=== PATIENT | female | born 1995 | race Caucasian/White ===

== ENCOUNTER 2018-03-23 14:57 | Inpatient (IN) | payer MEDICAID ==
[~2018-03-23] VITALS: Ht 154.9 cm; Wt 38.5 kg
[~2018-03-23 14:57] MED LIST: RISP2 PO; SERT50TA12 PO
[2018-03-23 15:32] VITALS: BP 111/72
[2018-03-23] MEDS ORDERED: ZOLPIDEM TARTRATE 10 MG TABLET PO PRN (16:00)
[2018-03-23 16:44] VITALS: BP 116/60
[2018-03-23] MEDS ORDERED: PETROLATUM,WHITE 71 GM JELLY TP PRN (16:45)
[2018-03-23] MEDS ORDERED: ACETAMINOPHEN 325 MG TABLET PO PRN (16:45)
[2018-03-23] MEDS ORDERED: MAGNESIUM HYDROXIDE SUSPENSION 30 ML UDCUP PO PRN (16:45)
[2018-03-23] MEDS ORDERED: DOCUSATE SODIUM 100 MG CAPSULE PO PRN (16:45)
[2018-03-23] MEDS ORDERED: ONDANSETRON HCL 4 MG TABLET PO PRN (16:45)
[2018-03-23] MEDS ORDERED: NICOTINE 14 MG/24 HOUR PATCH TD PRN (16:45)
[2018-03-23] MEDS ORDERED: MAG HYDROX/AL HYDROX/SIMETH ES 30 ML SUSPENSION UDCUP PO PRN (16:45)
[2018-03-23] MEDS ORDERED: IBUPROFEN 400 MG TABLET PO PRN (16:45)
[2018-03-23] MEDS ORDERED: GuaiFENesin/D-METHORPHAN [SUGAR-FREE] 200-20MG/10 ML SYRUP UDCUP PO PRN (16:45)
[2018-03-23] MEDS ORDERED: ALBUTEROL SULFATE HFA 90 MCG/PUFF 8 GM INHALER IH PRN (16:45)
[2018-03-23] MEDS ORDERED: CloNIDine HCL 0.1 MG TABLET PO PRN (16:45)
[2018-03-23] MEDS ORDERED: LOPERAMIDE HCL 2 MG CAPSULE PO PRN (16:45)
[2018-03-23] MEDS: HALOPERIDOL 5 MG TABLET PO PRN (20:54)
[2018-03-24 06:28] VITALS: BP 105/64
[2018-03-24 07:23] LABS: BASOPHILS % (AUTO) 0.6 % (0.0-2.0); EOSINOPHILS % (AUTO) 2.6 % (1.0-6.0); HEMATOCRIT 35.4 % (36-46); HEMOGLOBIN 12.8 g/dL (12.0-16.0); LYMPHOCYTES # (AUTO) 2.6 K/uL (1.0-4.8); LYMPHOCYTES % (AUTO) 59.1 % (22.0-44.0); MEAN CORPUSCULAR HEMOGLOBIN 33.8 pg (26.0-34.0); MEAN CORPUSCULAR HGB CONC 36.1 G/dL (31.0-37.0); MEAN CORPUSCULAR VOLUME 94 fL (80-100); MONOCYTES # (AUTO) 0.4 K/uL (0.1-1.0); MONOCYTES % (AUTO) 8.9 % (2.0-9.0); NEUTROPHILS # (AUTO) 1.3 K/uL (1.8-7.7); NEUTROPHILS % (AUTO) 28.8 % (40.0-70.0); PLATELET COUNT (AUTO) 185 K/uL (150-450); RED BLOOD CELL COUNT(AUTO) 3.78 MIL/uL (4.00-5.20); RED CELL DISTRIBUTION WIDTH 12.3 % (11.5-14.5)
[2018-03-24 07:49] LABS: HEMOGLOBIN A1C 5.2 % (4.5-6.2)
[2018-03-24 07:50] LABS: ANION GAP 5 mmol/L (8-16); CARBON DIOXIDE 31 mmol/L (22-29); CHLORIDE 103 mmol/L (98-107); SODIUM SERUM 139 mmol/L (136-145)
[2018-03-24 07:51] LABS: ALANINE AMINOTRANSFERASE 30 U/L (12-78); ALBUMIN 3.8 g/dL (3.4-5.0); ALKALINE PHOSPHATASE 44 U/L (46-116); ASPARTATE AMINOTRANSFERASE 17 U/L (15-37); BILIRUBIN,TOTAL 0.6 mg/dL (0.1-1.0); CALCIUM, TOTAL 8.8 mg/dL (8.8-10.5); CHOL/HDL RATIO 2.5 (3.9-5.7); CHOLESTEROL 182 mg/dL (131-200); CREATININE 0.71 mg/dL (0.60-1.30); FREE T4 (FREE THYROXINE) 1.09 ng/dL (0.76-1.46); GLOMERULAR FILTR. RATE CALC > 60 mL/min (>60); GLUCOSE,RANDOM 81 mg/dL (70-110); HCG,QUANTITATIVE < 1 mIU/mL (0-6); HDL CHOLESTEROL 74 mg/dL (40-60); LDL CHOL (CALC.) 97 mg/dL (0-130); THYROID STIMULATING HORMONE 2.73 uIU/mL (0.36-3.74); TOTAL PROTEIN, SERUM 6.5 g/dL (6.4-8.2); TRIGLYCERIDES 53 mg/dL (15-150); UREA NITROGEN, BLOOD 9 mg/dL (7-18)
[2018-03-24 08:13] VITALS: BP 100/61
[2018-03-24] MEDS: SERTRALINE HCL 50 MG TABLET PO SCH (12:38)
[2018-03-24 16:04] VITALS: BP 103/64
[2018-03-24] MEDS: RisperiDONE 2 MG TABLET PO SCH (20:27)
[2018-03-25 08:03] VITALS: BP 93/60
[2018-03-25] MEDS: SERTRALINE HCL 50 MG TABLET PO SCH (08:30)
[2018-03-25] MEDS: NICOTINE 21 MG/24 HOUR PATCH TD SCH (10:38)
[2018-03-25 16:05] VITALS: BP_SYST 107; BP_SYST 118; BP_DIAS 68; BP_DIAS 76
[2018-03-25] MEDS: LORazepam 2 MG TABLET PO PRN (17:14)
[2018-03-25] MEDS: RisperiDONE 2 MG TABLET PO SCH (20:52)
[2018-03-26 06:11] VITALS: BP 108/65
[2018-03-26 08:14] VITALS: BP 108/65
[2018-03-26] MEDS: NICOTINE 21 MG/24 HOUR PATCH TD SCH (08:17)
[2018-03-26] MEDS: SERTRALINE HCL 50 MG TABLET PO SCH (08:17)
[2018-03-26] MEDS: HALOPERIDOL 5 MG TABLET PO PRN (08:17)
[2018-03-26] MEDS: LORazepam 2 MG TABLET PO PRN (08:17)
[2018-03-26 16:09] VITALS: BP 102/64
[2018-03-26] MEDS: RisperiDONE 2 MG TABLET PO SCH (21:02)
[2018-03-27 04:11] VITALS: BP 102/70
[2018-03-27 08:16] VITALS: BP 102/65
[2018-03-27] MEDS: SERTRALINE HCL 50 MG TABLET PO SCH (08:16)
[2018-03-27] MEDS: NICOTINE 21 MG/24 HOUR PATCH TD SCH (08:17)
[2018-03-27 14:43] VITALS: BP 107/68
[2018-03-27 16:23] VITALS: BP 100/64
[2018-03-27] MEDS: RisperiDONE 2 MG TABLET PO SCH (20:36)
[2018-03-28 01:49] VITALS: BP 108/70
[2018-03-28 08:22] VITALS: BP 100/63
[2018-03-28] MEDS: SERTRALINE HCL 50 MG TABLET PO SCH (08:53)
[2018-03-28] MEDS: NICOTINE 21 MG/24 HOUR PATCH TD SCH (08:54)
[2018-03-28] MEDS ORDERED: RisperiDONE 1 MG TABLET PO SCH (09:00)
[2018-03-28] MEDS ORDERED: RISP1TAB89 PO (09:49)
[2018-03-28] MEDS ORDERED: NICO-802 TD (09:58)
== END 2018-03-28 13:25 | disposition home or self-care (01) | DRG 750 ==
LOC: B3A 16:04 → B2S 03-27 14:03
PROVIDERS: ATTEND Psychiatry & Neurology Psychiatry
DX: F25.1 Schizoaffective disorder, depressive type (principal); F12.10 Cannabis abuse, uncomplicated; F15.10 Other stimulant abuse, uncomplicated; F17.200 Nicotine dependence, unspecified, uncomplicated; F41.9 Anxiety disorder, unspecified; G47.00 Insomnia, unspecified; Z91.5 Personal history of self-harm; Z71.51 Drug abuse counseling and surveillance of drug abuser; Z79.899 Other long term (current) drug therapy; Z56.0 Unemployment, unspecified
CPT/HCPCS: 83036; 84439; 84443; 87081; 90686

== ENCOUNTER 2018-12-18 15:30 | Inpatient (IN) | payer MEDICAID ==
[~2018-12-18] VITALS: Ht 154.9 cm; Wt 45.4 kg
[~2018-12-18 15:30] MED LIST changes: +RISP1TAB89 PO
[2018-12-18 15:33] VITALS: BP 107/66
[2018-12-18] MEDS ORDERED: ZOLPIDEM TARTRATE 10 MG TABLET PO PRN (15:45)
[2018-12-18] MEDS ORDERED: LORazepam 2 MG TABLET PO PRN (15:45)
[2018-12-18] MEDS ORDERED: HALOPERIDOL 5 MG TABLET PO PRN (15:45)
[2018-12-18 19:15] VITALS: BP 116/73
[2018-12-18] MEDS ORDERED: MAGNESIUM HYDROXIDE SUSPENSION 30 ML UDCUP PO PRN (21:00)
[2018-12-18] MEDS ORDERED: LOPERAMIDE HCL 2 MG CAPSULE PO PRN (21:00)
[2018-12-18] MEDS ORDERED: DOCUSATE SODIUM 100 MG CAPSULE PO PRN (21:00)
[2018-12-18] MEDS ORDERED: GuaiFENesin/D-METHORPHAN [SUGAR-FREE] 200-20MG/10 ML SYRUP UDCUP PO PRN (21:00)
[2018-12-18] MEDS ORDERED: NICOTINE 14 MG/24 HOUR PATCH TD PRN (21:00)
[2018-12-18] MEDS ORDERED: CloNIDine HCL 0.1 MG TABLET PO PRN (21:00)
[2018-12-18] MEDS ORDERED: ONDANSETRON HCL 4 MG TABLET PO PRN (21:00)
[2018-12-18] MEDS ORDERED: ALBUTEROL SULFATE HFA 90 MCG/PUFF 8 GM INHALER IH PRN (21:00)
[2018-12-18] MEDS ORDERED: MAG HYDROX/AL HYDROX/SIMETH ES 30 ML SUSPENSION UDCUP PO PRN (21:00)
[2018-12-18] MEDS ORDERED: PETROLATUM,WHITE 28 GM JELLY TP PRN (21:00)
[2018-12-18] MEDS ORDERED: ACETAMINOPHEN 325 MG TABLET PO PRN (21:00)
[2018-12-19 05:59] VITALS: BP 123/75
[2018-12-19 08:11] LABS: BASOPHILS % (AUTO) 0.6 % (0.0-2.0); EOSINOPHILS % (AUTO) 2.7 % (1.0-6.0); HEMOGLOBIN 13.6 g/dL (12.0-16.0); LYMPHOCYTES # (AUTO) 2.2 K/uL (1.0-4.8); LYMPHOCYTES % (AUTO) 45.7 % (22.0-44.0); MEAN CORPUSCULAR HEMOGLOBIN 32.3 pg (26.0-34.0); MEAN CORPUSCULAR HGB CONC 34.1 G/dL (31.0-37.0); MEAN CORPUSCULAR VOLUME 95 fL (80-100); MONOCYTES # (AUTO) 0.5 K/uL (0.1-1.0); MONOCYTES % (AUTO) 9.6 % (2.0-9.0); NEUTROPHILS % (AUTO) 41.4 % (40.0-70.0); PLATELET COUNT (AUTO) 211 K/uL (150-450); RED BLOOD CELL COUNT(AUTO) 4.23 MIL/uL (4.00-5.20); RED CELL DISTRIBUTION WIDTH 13.4 % (11.5-14.5)
[2018-12-19 08:15] LABS: HEMOGLOBIN A1C 4.8 % (4.5-6.2)
[2018-12-19 08:22] VITALS: BP 113/71
[2018-12-19 08:31] LABS: ALANINE AMINOTRANSFERASE 12 U/L (12-78); ALKALINE PHOSPHATASE 46 U/L (46-116); ANION GAP 12 mmol/L (8-16); ASPARTATE AMINOTRANSFERASE 10 U/L (15-37); BILIRUBIN,TOTAL 1.6 mg/dL (0.1-1.0); CALCIUM, TOTAL 8.9 mg/dL (8.8-10.5); CARBON DIOXIDE 25 mmol/L (22-29); CHLORIDE 103 mmol/L (98-107); CHOL/HDL RATIO 3.1 (3.9-5.7); CHOLESTEROL 171 mg/dL (131-200); CREATININE 0.63 mg/dL (0.60-1.30); FREE T4 (FREE THYROXINE) 1.23 ng/dL (0.76-1.46); GLOMERULAR FILTR. RATE CALC > 60 mL/min (>60); GLUCOSE,RANDOM 88 mg/dL (70-110); HCG,QUANTITATIVE < 1 mIU/mL (0-6); HDL CHOLESTEROL 55 mg/dL (40-60); LDL CHOL (CALC.) 104 mg/dL (0-130); POTASSIUM 3.9 mmol/L (3.5-5.1); SODIUM SERUM 140 mmol/L (136-145); THYROID STIMULATING HORMONE 0.95 uIU/mL (0.36-3.74); TOTAL PROTEIN, SERUM 6.9 g/dL (6.4-8.2); TRIGLYCERIDES 59 mg/dL (15-150); UREA NITROGEN, BLOOD 14 mg/dL (7-18)
[2018-12-19] MEDS: NICOTINE 21 MG/24 HOUR PATCH TD SCH (09:00)
[2018-12-19] MEDS: SERTRALINE HCL 50 MG TABLET PO SCH (13:44)
[2018-12-19] MEDS: RisperiDONE 1 MG TABLET PO SCH ×2 (13:44→20:29)
[2018-12-19 16:06] VITALS: BP 106/58
[2018-12-20 01:23] VITALS: BP 110/62
[2018-12-20 08:20] VITALS: BP 99/60
[2018-12-20] MEDS: SERTRALINE HCL 50 MG TABLET PO SCH (09:56)
[2018-12-20] MEDS: RisperiDONE 1 MG TABLET PO SCH ×2 (09:56→20:17)
[2018-12-20] MEDS: NICOTINE 21 MG/24 HOUR PATCH TD SCH (10:15)
[2018-12-20 16:05] VITALS: BP 104/58
[2018-12-21 00:27] VITALS: BP 106/61
[2018-12-21 08:11] VITALS: BP 100/61
[2018-12-21] MEDS: SERTRALINE HCL 50 MG TABLET PO SCH (08:30)
[2018-12-21] MEDS: RisperiDONE 1 MG TABLET PO SCH (08:30)
[2018-12-21] MEDS: NICOTINE 21 MG/24 HOUR PATCH TD SCH (08:30)
[2018-12-21 16:13] VITALS: BP 101/60
[2018-12-21 17:15] VITALS: BP 105/77
[2018-12-21] MEDS: IBUPROFEN 400 MG TABLET PO PRN (17:15)
[2018-12-21] MEDS: RisperiDONE 2 MG TABLET PO SCH (20:18)
[2018-12-22 06:36] VITALS: BP 102/63
[2018-12-22 08:17] VITALS: BP 100/61
[2018-12-22] MEDS: SERTRALINE HCL 50 MG TABLET PO SCH (08:54)
[2018-12-22] MEDS: NICOTINE 21 MG/24 HOUR PATCH TD SCH (08:54)
[2018-12-22] MEDS: RisperiDONE 1 MG TABLET PO SCH (08:54)
[2018-12-22 16:00] VITALS: BP 119/68
[2018-12-22 17:16] VITALS: BP 118/72
[2018-12-22] MEDS: IBUPROFEN 400 MG TABLET PO PRN (17:16)
[2018-12-22] MEDS: RisperiDONE 2 MG TABLET PO SCH (20:03)
[2018-12-23 04:19] VITALS: BP 100/60
[2018-12-23 08:16] VITALS: BP 104/64
[2018-12-23] MEDS: RisperiDONE 1 MG TABLET PO SCH (08:23)
[2018-12-23] MEDS: SERTRALINE HCL 50 MG TABLET PO SCH (08:23)
[2018-12-23] MEDS: NICOTINE 21 MG/24 HOUR PATCH TD SCH (08:23)
[2018-12-23 13:39] VITALS: BP 119/87
[2018-12-23] MEDS: IBUPROFEN 400 MG TABLET PO PRN (13:39)
[2018-12-23 16:00] VITALS: BP 107/62
[2018-12-23 19:51] VITALS: BP 112/71
[2018-12-23] MEDS: RisperiDONE 2 MG TABLET PO SCH (20:09)
[2018-12-24 05:38] VITALS: BP 110/71
[2018-12-24] MEDS: IBUPROFEN 400 MG TABLET PO PRN (07:38)
[2018-12-24 08:21] VITALS: BP 101/60
[2018-12-24] MEDS ORDERED: RISP1 PO (08:48)
[2018-12-24] MEDS ORDERED: SERT50TA12 PO (08:48)
[2018-12-24] MEDS ORDERED: RISP2 PO (08:48)
[2018-12-24] MEDS: RisperiDONE 1 MG TABLET PO SCH (08:52)
[2018-12-24] MEDS: SERTRALINE HCL 50 MG TABLET PO SCH (08:52)
[2018-12-24] MEDS: NICOTINE 21 MG/24 HOUR PATCH TD SCH (08:52)
== END 2018-12-24 10:45 | disposition home or self-care (01) | DRG 750 ==
LOC: B2S 15:50 → B2X 15:50 → B2S 19:20
DX: F25.1 Schizoaffective disorder, depressive type (principal); E44.0 Moderate protein-calorie malnutrition; R45.851 Suicidal ideations; R17 Unspecified jaundice; F15.10 Other stimulant abuse, uncomplicated; Z79.899 Other long term (current) drug therapy
CPT/HCPCS: 83036; 84439; 84443; 87081

== ENCOUNTER 2019-03-11 16:05 | Inpatient (IN) | payer MEDICAID ==
[~2019-03-11] VITALS: Ht 154.9 cm; Wt 43.0 kg
[~2019-03-11 16:05] MED LIST changes: +RISP1 PO
[2019-03-11] MEDS ORDERED: SERT50TA12 PO (16:11)
[2019-03-11] MEDS ORDERED: PROMETHAZINE HCL 25 MG TABLET PO PRN (16:30)
[2019-03-11] MEDS ORDERED: GuaiFENesin/D-METHORPHAN [SUGAR-FREE] 200-20MG/10 ML SYRUP UDCUP PO PRN (16:30)
[2019-03-11] MEDS ORDERED: PALIPERIDONE PALMITATE 234 MG/1.5 ML SYRINGE IM ONE (16:30)
[2019-03-11] MEDS ORDERED: HydrOXYzine PAMOATE 50 MG CAPSULE PO PRN (16:30)
[2019-03-11] MEDS ORDERED: TUBERCULIN, PURIFIED PROTEIN DERIVATIVE 5 TU/0.1 ML SYRINGE ID ONE (16:30)
[2019-03-11] MEDS ORDERED: PALIPERIDONE 1.5 MG ER TABLET PO PRN (16:30)
[2019-03-11] MEDS ORDERED: LORazepam 2 MG TABLET PO PRN (16:30)
[2019-03-11 18:00] VITALS: BP 90/61
[2019-03-11] MEDS ORDERED: INFLUENZA VIRUS VACCINE QVS 2019-20 (3YR+)/PF 60 MCG/0.5 ML SYRINGE IM ONE (18:15)
[2019-03-11] MEDS ORDERED: PALIPERIDONE 3 MG ER TABLET PO SCH (21:00)
[2019-03-11] MEDS: THIAMINE HCL 100 MG TABLET PO SCH (22:00)
[2019-03-11] MEDS ORDERED: ACETAMINOPHEN 325 MG TABLET PO PRN (23:00)
[2019-03-12 06:09] VITALS: BP 110/65
[2019-03-12] MEDS: IBUPROFEN 600 MG TABLET PO PRN (06:25)
[2019-03-12 07:50] LABS: BASOPHILS % (AUTO) 0.4 % (0.0-2.0); EOSINOPHILS % (AUTO) 2.2 % (1.0-6.0); HEMATOCRIT 37.2 % (36-46); HEMOGLOBIN 12.9 g/dL (12.0-16.0); LYMPHOCYTES # (AUTO) 3.4 K/uL (1.0-4.8); LYMPHOCYTES % (AUTO) 63.8 % (22.0-44.0); MEAN CORPUSCULAR HEMOGLOBIN 32.7 pg (26.0-34.0); MEAN CORPUSCULAR HGB CONC 34.6 G/dL (31.0-37.0); MEAN CORPUSCULAR VOLUME 94 fL (80-100); MONOCYTES # (AUTO) 0.2 K/uL (0.1-1.0); MONOCYTES % (AUTO) 4.4 % (2.0-9.0); NEUTROPHILS # (AUTO) 1.6 K/uL (1.8-7.7); NEUTROPHILS % (AUTO) 29.2 % (40.0-70.0); PLATELET COUNT (AUTO) 154 K/uL (150-450); RED BLOOD CELL COUNT(AUTO) 3.94 MIL/uL (4.00-5.20); RED CELL DISTRIBUTION WIDTH 12.9 % (11.5-14.5)
[2019-03-12] MEDS: FOLIC ACID 1 MG TABLET PO SCH (08:02)
[2019-03-12] MEDS: FLUoxetine HCL 20 MG CAPSULE PO SCH (08:02)
[2019-03-12] MEDS: MULTIVITAMINS WITH MINERALS, THERAPEUTIC TABLET PO SCH (08:02)
[2019-03-12] MEDS: THIAMINE HCL 100 MG TABLET PO SCH ×2 (08:02→17:43)
[2019-03-12 08:10] VITALS: BP 100/54
[2019-03-12 08:49] LABS: ALANINE AMINOTRANSFERASE 24 U/L (12-78); ALBUMIN 3.5 g/dL (3.4-5.0); ALKALINE PHOSPHATASE 44 U/L (46-116); ANION GAP 7 mmol/L (8-16); ASPARTATE AMINOTRANSFERASE 14 U/L (15-37); BILIRUBIN,TOTAL 0.5 mg/dL (0.1-1.0); CALCIUM, TOTAL 8.1 mg/dL (8.8-10.5); CARBON DIOXIDE 30 mmol/L (22-29); CHLORIDE 106 mmol/L (98-107); CHOL/HDL RATIO 2.8 (3.9-5.7); CHOLESTEROL 153 mg/dL (131-200); CREATININE 0.85 mg/dL (0.60-1.30); FREE T4 (FREE THYROXINE) 0.94 ng/dL (0.76-1.46); GLOMERULAR FILTR. RATE CALC > 60 mL/min (>60); GLUCOSE,RANDOM 89 mg/dL (70-110); HCG,QUANTITATIVE < 1 mIU/mL (0-6); HDL CHOLESTEROL 54 mg/dL (40-60); LDL CHOL (CALC.) 72 mg/dL (0-130); POTASSIUM 3.5 mmol/L (3.5-5.1); SODIUM SERUM 143 mmol/L (136-145); THYROID STIMULATING HORMONE 1.89 uIU/mL (0.36-3.74); TRIGLYCERIDES 134 mg/dL (15-150)
[2019-03-12 09:00] LABS: TOTAL PROTEIN, SERUM 6.2 g/dL (6.4-8.2); UREA NITROGEN, BLOOD 9 mg/dL (7-18)
[2019-03-12 17:42] VITALS: BP 97/56
[2019-03-13 01:13] VITALS: BP_SYST 116; BP_SYST 121; BP_DIAS 64
[2019-03-13 08:05] VITALS: BP 100/56
[2019-03-13] MEDS: THIAMINE HCL 100 MG TABLET PO SCH ×2 (08:12→16:01)
[2019-03-13] MEDS: FLUoxetine HCL 20 MG CAPSULE PO SCH (08:12)
[2019-03-13] MEDS: FOLIC ACID 1 MG TABLET PO SCH (08:12)
[2019-03-13] MEDS: MULTIVITAMINS WITH MINERALS, THERAPEUTIC TABLET PO SCH (08:12)
[2019-03-13] MEDS: NALTREXONE HCL 50 MG TABLET PO SCH (08:12)
[2019-03-13 16:02] VITALS: BP 101/56
[2019-03-14] MEDS: THIAMINE HCL 100 MG TABLET PO SCH ×2 (08:06→16:25)
[2019-03-14] MEDS: FLUoxetine HCL 20 MG CAPSULE PO SCH (08:10)
[2019-03-14] MEDS: FOLIC ACID 1 MG TABLET PO SCH (08:11)
[2019-03-14] MEDS: MULTIVITAMINS WITH MINERALS, THERAPEUTIC TABLET PO SCH (08:11)
[2019-03-14] MEDS: NALTREXONE HCL 50 MG TABLET PO SCH (08:11)
[2019-03-14 08:20] VITALS: BP 102/62
[2019-03-14] MEDS ORDERED: PALI117D IM (15:55)
[2019-03-14] MEDS ORDERED: FLUO-191 PO (15:55)
[2019-03-14] MEDS ORDERED: NALT50TA PO (15:56)
[2019-03-14 16:01] VITALS: BP 110/71
[2019-03-14] MEDS: IBUPROFEN 600 MG TABLET PO PRN (18:18)
[2019-03-14 18:22] VITALS: BP 131/92
[2019-03-15 05:54] VITALS: BP 105/63
[2019-03-15 08:12] VITALS: BP 108/65
[2019-03-15 08:14] VITALS: BP 108/65
[2019-03-15] MEDS ORDERED: FLUO-191 PO (08:26)
[2019-03-15] MEDS: MULTIVITAMINS WITH MINERALS, THERAPEUTIC TABLET PO SCH (08:31)
[2019-03-15] MEDS: NALTREXONE HCL 50 MG TABLET PO SCH (08:31)
[2019-03-15] MEDS: FOLIC ACID 1 MG TABLET PO SCH (08:31)
[2019-03-15] MEDS: THIAMINE HCL 100 MG TABLET PO SCH (08:31)
[2019-03-15] MEDS ORDERED: FLUoxetine HCL 20 MG CAPSULE PO SCH (09:00)
[2019-03-15] MEDS ORDERED: PALIPERIDONE PALMITATE 156 MG/ML SYRINGE IM ONE (09:00)
[2019-03-15] MEDS ORDERED: PANTOPRAZOLE SODIUM 40 MG DR TABLET PO SCH (10:00)
[2019-03-15 16:00] VITALS: BP 106/57
== END 2019-03-15 15:53 | disposition home or self-care (01) | DRG 750 ==
LOC: B3A 16:39
PROVIDERS: ADMIT Psychiatry & Neurology Psychiatry; ATTEND Psychiatry & Neurology Psychiatry
DX: F25.9 Schizoaffective disorder, unspecified (principal); R45.851 Suicidal ideations; Z91.19 Patient's noncompliance with other medical treatment and regimen; Z28.21 Immunization not carried out because of patient refusal; F32.9 Major depressive disorder, single episode, unspecified; Z91.5 Personal history of self-harm; F12.90 Cannabis use, unspecified, uncomplicated; F15.90 Other stimulant use, unspecified, uncomplicated; F17.210 Nicotine dependence, cigarettes, uncomplicated; Z79.899 Other long term (current) drug therapy
CPT/HCPCS: 83036; 84439; 84443; 86592; 90686

== ENCOUNTER 2019-04-16 02:05 | Emergency (ER) | payer MEDICAID ==
[~2019-04-16] VITALS: Ht 154.9 cm; Wt 45.0 kg
[~2019-04-16 02:05] MED LIST changes: +FLUO-191 PO; +NALT50TA PO; +PALI117D IM; -RISP1 PO; -RISP1TAB89 PO; -RISP2 PO; -SERT50TA12 PO
[2019-04-16 03:03] LABS: BASOPHILS % (AUTO) 0.4 % (0.0-2.0); EOSINOPHILS % (AUTO) 2.5 % (1.0-6.0); HEMATOCRIT 38.2 % (36-46); HEMOGLOBIN 13.1 g/dL (12.0-16.0); LYMPHOCYTES # (AUTO) 2.5 K/uL (1.0-4.8); LYMPHOCYTES % (AUTO) 36.3 % (22.0-44.0); MEAN CORPUSCULAR HEMOGLOBIN 32.7 pg (26.0-34.0); MEAN CORPUSCULAR HGB CONC 34.4 G/dL (31.0-37.0); MEAN CORPUSCULAR VOLUME 95 fL (80-100); MONOCYTES # (AUTO) 0.5 K/uL (0.1-1.0); MONOCYTES % (AUTO) 7.7 % (2.0-9.0); NEUTROPHILS # (AUTO) 3.6 K/uL (1.8-7.7); NEUTROPHILS % (AUTO) 53.1 % (40.0-70.0); PLATELET COUNT (AUTO) 205 K/uL (150-450); RED BLOOD CELL COUNT(AUTO) 4.03 MIL/uL (4.00-5.20); RED CELL DISTRIBUTION WIDTH 13.2 % (11.5-14.5)
[2019-04-16 03:10] LABS: ANION GAP 10 mmol/L (8-16); CALCIUM, TOTAL 8.8 mg/dL (8.8-10.5); CARBON DIOXIDE 30 mmol/L (22-29); CHLORIDE 107 mmol/L (98-107); CREATININE 0.61 mg/dL (0.60-1.30); GLOMERULAR FILTR. RATE CALC > 60 mL/min (>60); GLUCOSE,RANDOM 95 mg/dL (70-110); POTASSIUM 3.5 mmol/L (3.5-5.1); SODIUM SERUM 147 mmol/L (136-145); UREA NITROGEN, BLOOD 8 mg/dL (7-18)
[2019-04-16 03:15] LABS: ALANINE AMINOTRANSFERASE 65 U/L (12-78); ALKALINE PHOSPHATASE 60 U/L (46-116); ASPARTATE AMINOTRANSFERASE 78 U/L (15-37); BILIRUBIN,TOTAL 0.3 mg/dL (0.1-1.0); TOTAL PROTEIN, SERUM 7.1 g/dL (6.4-8.2)
[2019-04-16 07:06] VITALS: BP 105/55
== END 2019-04-16 07:07 | disposition home or self-care (01) ==
LOC: EMS 02:05
DX: F20.9 Schizophrenia, unspecified (principal); F10.129 Alcohol abuse with intoxication, unspecified; Y90.7 Blood alcohol level of 200-239 mg/100 ml
CPT/HCPCS: 36415; 80053; 85025; 99284; G0480

== ENCOUNTER 2021-10-10 00:44 | Emergency (ER) | payer MEDICAID, OTHER ==
[~2021-10-10] VITALS: Ht 157.5 cm; Wt 63.6 kg
[~2021-10-10 00:44] MED LIST changes: +FLUO-177 PO; -FLUO-191 PO
[2021-10-10] MEDS ORDERED: KETOROLAC TROMETHAMINE 60 MG/2 ML VIAL IM ONE (01:45)
[2021-10-10] MEDS ORDERED: CefTRIAXone SODIUM 1 GM/VIAL IM ONE (01:45)
[2021-10-10] MEDS ORDERED: PERTUSS(ACELL),DIPH,TET VAC/PF 0.5 ML SYRINGE IM. ONE (01:45)
[2021-10-10] MEDS ORDERED: DOXYCYCLINE HYCLATE 100 MG TABLET PO ONE (01:45)
[2021-10-10] MEDS ORDERED: LIDOCAINE/PF 1% 2 ML VIAL IM ONE (01:45)
[2021-10-10] MEDS ORDERED: HYDROCODONE/ACETAMINOPHEN 5-325 MG TABLET PO ONE (01:45)
[2021-10-10] MEDS ORDERED: CEPH-558 PO (03:07)
[2021-10-10] MEDS ORDERED: DOXY-354 PO (03:07)
[2021-10-10] MEDS ORDERED: IBUP-1554 PO (03:07)
[2021-10-10 03:32] VITALS: BP 117/68
== END 2021-10-10 04:37 | disposition home or self-care (01) ==
LOC: EMS 00:47
DX: L03.116 Cellulitis of left lower limb (principal); F20.9 Schizophrenia, unspecified
CPT/HCPCS: 99285; 97597; 90715; 90471; 96372; J0696; J1885; J3490

== ENCOUNTER 2021-10-25 08:55 | Emergency (ER) | payer OTHER ==
[~2021-10-25] VITALS: Ht 157.5 cm; Wt 63.6 kg
[~2021-10-25 08:55] MED LIST changes: +CEPH-558 PO; +DOXY-354 PO; +IBUP-1554 PO
[2021-10-25] MEDS ORDERED: BENZ0.5T49 PO (09:04)
[2021-10-25] MEDS ORDERED: ESCI-8 PO (09:04)
[2021-10-25] MEDS ORDERED: OLAN2.5T29 PO (09:04)
[2021-10-25] MEDS ORDERED: FLUP1TAB8 PO (09:04)
[2021-10-25 10:52] LABS: AMPHET/METH SCREEN,URINE NEGATIVE (NEGATIVE); BARBITURATE SCREEN, URINE NEGATIVE (NEGATIVE); BENZODIAZEPINES SCREEN,URINE NEGATIVE (NEGATIVE); CANNABINOID SCREEN,URINE NEGATIVE (NEGATIVE); COCAINE SCREEN,URINE NEGATIVE (NEGATIVE); METHADONE SCREEN, URINE NEGATIVE (NEGATIVE); OPIATE SCREEN,URINE NEGATIVE (NEGATIVE); PHENCYCLIDINE SCREEN,URINE NEGATIVE (NEGATIVE)
[2021-10-25 12:23] VITALS: BP 115/78
== END 2021-10-25 12:27 | disposition home or self-care (01) ==
LOC: EMS 08:56
DX: Z02.1 Encounter for pre-employment examination (principal); F20.9 Schizophrenia, unspecified; F31.9 Bipolar disorder, unspecified
CPT/HCPCS: 99283

== ENCOUNTER 2021-10-31 17:32 | Emergency (ER) | payer OTHER ==
[~2021-10-31] VITALS: Ht 162.6 cm; Wt 65.9 kg
[~2021-10-31 17:32] MED LIST changes: +BENZ0.5T49 PO; -CEPH-558 PO; -DOXY-354 PO; +ESCI-8 PO; -FLUO-177 PO; +FLUP1TAB8 PO; -IBUP-1554 PO; -NALT50TA PO; +OLAN2.5T29 PO; -PALI117D IM
[2021-10-31 17:45] VITALS: BP 109/66
[2021-10-31] MEDS ORDERED: DiphenhydrAMINE HCL 50 MG/ML VIAL IM ONE (18:45)
[2021-10-31] MEDS ORDERED: LORazepam 2 MG TABLET PO ONE (18:45)
[2021-10-31] MEDS ORDERED: DIPH25CA85 PO (19:08)
== END 2021-10-31 19:26 | disposition home or self-care (01) ==
LOC: EMS 17:39
DX: G25.71 Drug induced akathisia (principal); F32.A Depression, unspecified
CPT/HCPCS: 99283; 96372; J1200

== ENCOUNTER 2022-06-24 12:37 | Inpatient (IN) | payer MEDICAID, OTHER ==
[~2022-06-24] VITALS: Ht 157.5 cm; Wt 44.9 kg
[~2022-06-24 12:37] MED LIST changes: +DIPH25CA85 PO
[2022-06-24 15:15] LABS: COVID AG,FIA SOURCE NASAL SWAB
[2022-06-24 15:20] LABS: BASOPHILS % (AUTO) 0.6 % (0.0-2.0); EOSINOPHILS % (AUTO) 0.1 % (1.0-6.0); HEMATOCRIT 42.5 % (36-46); HEMOGLOBIN 14.8 g/dL (12.0-16.0); LYMPHOCYTES # (AUTO) 1.7 K/uL (1.0-4.8); LYMPHOCYTES % (AUTO) 34.2 % (22.0-44.0); MEAN CORPUSCULAR HEMOGLOBIN 31.9 pg (26.0-34.0); MEAN CORPUSCULAR HGB CONC 34.8 G/dL (31.0-37.0); MEAN CORPUSCULAR VOLUME 92 fL (80-100); MONOCYTES # (AUTO) 0.3 K/uL (0.1-1.0); MONOCYTES % (AUTO) 7.2 % (2.0-9.0); NEUTROPHILS # (AUTO) 2.8 K/uL (1.8-7.7); NEUTROPHILS % (AUTO) 57.9 % (40.0-70.0); PLATELET COUNT (AUTO) 193 K/uL (150-450); RED BLOOD CELL COUNT(AUTO) 4.64 MIL/uL (4.00-5.20); RED CELL DISTRIBUTION WIDTH 13.1 % (11.5-14.5)
[2022-06-24 15:40] LABS: ALANINE AMINOTRANSFERASE 23 U/L (12-78); ALBUMIN 4.8 g/dL (3.4-5.0); ALKALINE PHOSPHATASE 86 U/L (46-116); ANION GAP 20 mmol/L (8-16); ASPARTATE AMINOTRANSFERASE 22 U/L (15-37); BILIRUBIN,TOTAL 1.8 mg/dL (0.1-1.0); CALCIUM, TOTAL 9.5 mg/dL (8.8-10.5); CARBON DIOXIDE 17 mmol/L (22-29); CHLORIDE 102 mmol/L (98-107); CREATININE 0.82 mg/dL (0.60-1.30); GLOMERULAR FILTR. RATE CALC > 60 mL/min (>60); GLUCOSE,RANDOM 97 mg/dL (70-110); HCG,QUANTITATIVE < 1 mIU/mL (0-6); SODIUM SERUM 139 mmol/L (136-145); TOTAL PROTEIN, SERUM 8.2 g/dL (6.4-8.2); UREA NITROGEN, BLOOD 8 mg/dL (7-18)
[2022-06-24 15:44] LABS: POTASSIUM 2.8 mmol/L (3.5-5.1)
[2022-06-24] MEDS ORDERED: SODIUM CHLORIDE 0.9% 1,000 ML IV ONE (15:45)
[2022-06-24] MEDS ORDERED: POTASSIUM CHLORIDE 20 MEQ ER TABLET PO ONE (15:45)
[2022-06-24] MEDS ORDERED: POTASSIUM CHL 10 MEQ/WATER 50 ML IV ONE (15:45)
[2022-06-24] MEDS ORDERED: HALOPERIDOL LACTATE 5 MG/ML VIAL IM ONE (16:15)
[2022-06-24] MEDS ORDERED: LORazepam 2 MG/ML VIAL IM ONE (16:15)
[2022-06-24] MEDS ORDERED: DiphenhydrAMINE HCL 50 MG/ML VIAL IM ONE (16:15)
[2022-06-24] MEDS ORDERED: ZOLPIDEM TARTRATE 10 MG TABLET PO PRN (18:00)
[2022-06-24] MEDS ORDERED: LORazepam 2 MG TABLET PO PRN (18:00)
[2022-06-24] MEDS ORDERED: HALOPERIDOL 5 MG TABLET PO PRN (18:00)
[2022-06-24 20:03] LABS: AMPHET/METH SCREEN,URINE NEGATIVE (NEGATIVE); BARBITURATE SCREEN, URINE NEGATIVE (NEGATIVE); BENZODIAZEPINES SCREEN,URINE NEGATIVE (NEGATIVE); CANNABINOID SCREEN,URINE NEGATIVE (NEGATIVE); COCAINE SCREEN,URINE NEGATIVE (NEGATIVE); METHADONE SCREEN, URINE NEGATIVE (NEGATIVE); OPIATE SCREEN,URINE NEGATIVE (NEGATIVE); PHENCYCLIDINE SCREEN,URINE NEGATIVE (NEGATIVE)
[2022-06-24 20:13] LABS: APPEARANCE,URINE CLEAR (CLEAR); BILIRUBIN,URINE NEGATIVE (NEGATIVE); GLUCOSE, URINE (UA) NEGATIVE (NEGATIVE); KETONES,URINE =>150 mg/dL (NEGATIVE); LEUKOCYTE ESTERASE ,URINE SMALL (NEGATIVE); NITRATE,URINE NEGATIVE (NEGATIVE); OCCULT BLOOD,URINE SMALL (NEGATIVE); PH,URINE 6.5 (5.0-8.0); PROTEIN,URINE 100-200,SEE CONFIRM mg/dL (NEGATIVE); SPECIFIC GRAVITIY, URINE 1.025 (1.003-1.030); UROBILINOGEN,URINE <=1.0 mg/dL (<=1.0)
[2022-06-24 20:41] LABS: BACTERIA,URINE Few /HPF (None Seen); SQUAMOUS EPITHELIAL CELL,UR Few /LPF (None Seen); SULFOSALICYLIC ACID,URINE 1+ (Negative)
[2022-06-25 23:35] VITALS: BP 111/68
[2022-06-26] MEDS ORDERED: DOCUSATE SODIUM 100 MG CAPSULE PO PRN (06:00)
[2022-06-26] MEDS ORDERED: CloNIDine HCL 0.1 MG TABLET PO PRN (06:00)
[2022-06-26] MEDS ORDERED: GuaiFENesin/D-METHORPHAN [SUGAR-FREE] 200-20MG/10 ML SYRUP UDCUP PO PRN (06:00)
[2022-06-26] MEDS ORDERED: ALBUTEROL SULFATE HFA 90 MCG/PUFF 8 GM INHALER IH PRN (06:00)
[2022-06-26] MEDS ORDERED: LOPERAMIDE HCL 2 MG CAPSULE PO PRN (06:00)
[2022-06-26] MEDS ORDERED: POTASSIUM CHLORIDE 20 MEQ ER TABLET PO ONE (06:00)
[2022-06-26] MEDS ORDERED: MAGNESIUM HYDROXIDE SUSPENSION 30 ML UDCUP PO PRN (06:00)
[2022-06-26] MEDS ORDERED: MAG HYDROX/AL HYDROX/SIMETH ES 30 ML SUSPENSION UDCUP PO PRN (06:00)
[2022-06-26] MEDS ORDERED: ACETAMINOPHEN 325 MG TABLET PO PRN (06:00)
[2022-06-26] MEDS ORDERED: ONDANSETRON HCL 4 MG TABLET PO PRN (06:00)
[2022-06-26] MEDS ORDERED: PETROLATUM,WHITE 28 GM JELLY TP PRN (06:00)
[2022-06-26] MEDS ORDERED: IBUPROFEN 400 MG TABLET PO PRN (06:00)
[2022-06-26] MEDS ORDERED: NICOTINE 14 MG/24 HOUR PATCH TD PRN (06:00)
[2022-06-26 11:31] VITALS: BP 109/76
[2022-06-26 17:04] VITALS: BP 99/67
[2022-06-27 07:40] LABS: BASOPHILS % (AUTO) 0.4 % (0.0-2.0); EOSINOPHILS % (AUTO) 1.4 % (1.0-6.0); HEMATOCRIT 35.3 % (36-46); HEMOGLOBIN 12.6 g/dL (12.0-16.0); LYMPHOCYTES # (AUTO) 3.6 K/uL (1.0-4.8); LYMPHOCYTES % (AUTO) 57.5 % (22.0-44.0); MEAN CORPUSCULAR HEMOGLOBIN 32.6 pg (26.0-34.0); MEAN CORPUSCULAR HGB CONC 35.6 G/dL (31.0-37.0); MEAN CORPUSCULAR VOLUME 92 fL (80-100); MONOCYTES # (AUTO) 0.5 K/uL (0.1-1.0); MONOCYTES % (AUTO) 7.6 % (2.0-9.0); NEUTROPHILS # (AUTO) 2.1 K/uL (1.8-7.7); NEUTROPHILS % (AUTO) 33.1 % (40.0-70.0); PLATELET COUNT (AUTO) 144 K/uL (150-450); RED BLOOD CELL COUNT(AUTO) 3.85 MIL/uL (4.00-5.20); RED CELL DISTRIBUTION WIDTH 13.1 % (11.5-14.5)
[2022-06-27 07:52] LABS: HEMOGLOBIN A1C 4.8 % (3.8-5.6)
[2022-06-27 08:02] LABS: ALANINE AMINOTRANSFERASE 20 U/L (12-78); ALBUMIN 4.2 g/dL (3.4-5.0); ALKALINE PHOSPHATASE 66 U/L (46-116); ANION GAP 11 mmol/L (8-16); ASPARTATE AMINOTRANSFERASE 31 U/L (15-37); BILIRUBIN,TOTAL 0.9 mg/dL (0.1-1.0); CALCIUM, TOTAL 8.9 mg/dL (8.8-10.5); CARBON DIOXIDE 26 mmol/L (22-29); CHLORIDE 99 mmol/L (98-107); GLOMERULAR FILTR. RATE CALC > 60 mL/min (>60); GLUCOSE,RANDOM 84 mg/dL (70-110); SODIUM SERUM 136 mmol/L (136-145); THYROID STIMULATING HORMONE 1.25 uIU/mL (0.36-3.74); UREA NITROGEN, BLOOD 7 mg/dL (7-18)
[2022-06-27 08:53] LABS: CHOL/HDL RATIO 4.8 (3.9-5.7); CHOLESTEROL 249 mg/dL (131-200); HDL CHOLESTEROL 52 mg/dL (40-60); LDL CHOL (CALC.) 186 mg/dL (0-130); TRIGLYCERIDES 55 mg/dL (15-150)
[2022-06-27 08:59] VITALS: BP 107/72
== END 2022-06-27 14:45 | disposition home or self-care (01) | DRG 750 ==
LOC: EMS 12:41 → UNDOADMIN 06-25 21:34 → 3EC 06-25 21:34
PROVIDERS: ADMIT Psychiatry & Neurology Child & Adolescent Psychiatry; ATTEND Psychiatry & Neurology Child & Adolescent Psychiatry
DX: F25.1 Schizoaffective disorder, depressive type (principal); E43 Unspecified severe protein-calorie malnutrition; I95.9 Hypotension, unspecified; E78.5 Hyperlipidemia, unspecified; E87.6 Hypokalemia; Z68.1 Body mass index [BMI] 19.9 or less, adult; F14.90 Cocaine use, unspecified, uncomplicated; Z87.891 Personal history of nicotine dependence; Z20.822 Contact with and (suspected) exposure to COVID-19
CPT/HCPCS: 80053; 80061; 80307; 81001; 81002; 83036; 83735; 84132; 84443; 84702; 85025; 96365; 96372; 99285; G0480; J1200; J1630; J2060; J3480; J7030

== ENCOUNTER 2024-02-05 21:58 | Inpatient (IN) | payer MEDICAID, OTHER ==
[~2024-02-05] VITALS: Ht 157.5 cm; Wt 62.6 kg
[2024-02-05 23:18] LABS: BASOPHILS % (AUTO) 0.3 % (0.0-2.0); EOSINOPHILS % (AUTO) 0.8 % (1.0-6.0); HEMATOCRIT 38.5 % (36-46); HEMOGLOBIN 13.6 g/dL (12.0-16.0); LYMPHOCYTES # (AUTO) 1.6 K/uL (1.0-4.8); MEAN CORPUSCULAR HEMOGLOBIN 32.7 pg (26.0-34.0); MEAN CORPUSCULAR HGB CONC 35.3 G/dL (31.0-37.0); MEAN CORPUSCULAR VOLUME 93 fL (80-100); MONOCYTES # (AUTO) 0.5 K/uL (0.1-1.0); MONOCYTES % (AUTO) 7.1 % (2.0-9.0); NEUTROPHILS # (AUTO) 4.6 K/uL (1.8-7.7); NEUTROPHILS % (AUTO) 67.8 % (40.0-70.0); PLATELET COUNT (AUTO) 228 K/uL (150-450); RED BLOOD CELL COUNT(AUTO) 4.16 MIL/uL (4.00-5.20); RED CELL DISTRIBUTION WIDTH 12.9 % (11.5-14.5); WHITE BLOOD COUNT (AUTO) 6.8 K/uL (4.5-11.0)
[2024-02-05 23:45] LABS: ALCOHOL, BLOOD (SERUM) < 3 mg/dL (0-10)
[2024-02-05 23:50] LABS: ANION GAP 15 mmol/L (8-16); CALCIUM, TOTAL 8.5 mg/dL (8.8-10.5); CARBON DIOXIDE 22 mmol/L (22-29); CHLORIDE 99 mmol/L (98-107); CREATININE 0.62 mg/dL (0.60-1.30); GLOMERULAR FILTR. RATE CALC > 60 mL/min (>60); GLUCOSE,RANDOM 95 mg/dL (70-110); SODIUM SERUM 135 mmol/L (136-145); UREA NITROGEN, BLOOD 4 mg/dL (7-18)
[2024-02-05 23:51] LABS: POTASSIUM 2.7 mmol/L (3.5-5.1)
[2024-02-06 00:18] LABS: COVID AG,FIA SOURCE NASAL SWAB
[2024-02-06] MEDS: POTASSIUM CHLORIDE 20 MEQ ER TABLET PO ONE (00:30)
[2024-02-06 00:42] LABS: SARS-COV2 (COVID) ANTIGEN,FIA Negative (Negative)
[2024-02-06] MEDS ORDERED: LORazepam 2 MG TABLET PO PRN (05:30)
[2024-02-06] MEDS ORDERED: TUBERCULIN, PURIFIED PROTEIN DERIVATIVE 5 TU/0.1 ML SYRINGE ID ONE (05:30)
[2024-02-06] MEDS ORDERED: ACETAMINOPHEN 325 MG TABLET PO PRN (05:30)
[2024-02-06] MEDS ORDERED: MAGNESIUM HYDROXIDE SUSPENSION 30 ML UDCUP PO PRN (05:30)
[2024-02-06] MEDS ORDERED: HydrOXYzine PAMOATE 50 MG CAPSULE PO PRN (05:30)
[2024-02-06] MEDS ORDERED: OLANZapine 5 MG RAPDIS TABLET PO PRN (05:30)
[2024-02-06] MEDS ORDERED: ZOLPIDEM TARTRATE 10 MG TABLET PO PRN (05:30)
[2024-02-06] MEDS ORDERED: LOPERAMIDE HCL 2 MG CAPSULE PO PRN (05:30)
[2024-02-06] MEDS ORDERED: GuaiFENesin/D-METHORPHAN [SUGAR-FREE] 200-20MG/10 ML SYRUP UDCUP PO PRN (05:30)
[2024-02-06 06:23] LABS: PH,URINE DRUG SCREEN 6.5 (5.0-8.0)
[2024-02-06 06:29] LABS: ALCOHOL, URINE DRUG SCREEN NEGATIVE (NEGATIVE); AMPHET/METH SCREEN,URINE POSITIVE (NEGATIVE); BARBITURATE SCREEN, URINE NEGATIVE (NEGATIVE); BENZODIAZEPINES SCREEN,URINE NEGATIVE (NEGATIVE); CANNABINOID SCREEN,URINE NEGATIVE (NEGATIVE); COCAINE SCREEN,URINE NEGATIVE (NEGATIVE); METHADONE SCREEN, URINE NEGATIVE (NEGATIVE); OPIATE SCREEN,URINE NEGATIVE (NEGATIVE); PHENCYCLIDINE SCREEN,URINE NEGATIVE (NEGATIVE)
[2024-02-06] MEDS: MULTIVITAMINS WITH MINERALS, THERAPEUTIC TABLET PO SCH (08:08)
[2024-02-06] MEDS: THIAMINE 100 MG TABLET PO SCH (08:08)
[2024-02-06] MEDS: FOLIC ACID 1 MG TABLET PO SCH (08:08)
[2024-02-06] MEDS: NALTREXONE HCL 50 MG TABLET PO SCH (09:38)
[2024-02-06] MEDS: FLUoxetine HCL 20 MG CAPSULE PO SCH (09:38)
[2024-02-06 10:00] VITALS: O2SAT 100
[2024-02-06 13:14] VITALS: BP 122/68; PULSE 90; RESP 18; TEMP 97.7
[2024-02-06] MEDS ORDERED: PALIPERIDONE PALMITATE 234 MG/1.5 ML SYRINGE IM ONE (16:00)
[2024-02-06] MEDS ORDERED: FluPHENAZine DECANOATE 25 MG/ML IM ONE (16:30)
[2024-02-06] MEDS: TRIHEXYPHENIDYL HCL 2 MG TABLET PO SCH (17:16)
[2024-02-06] MEDS: INFLUENZA VIRUS VACCINE TVS (6MO+) 2024-25/PF 45 MCG/0.5 ML SYRINGE IM. ONE (17:21)
[2024-02-06] MEDS: MELATONIN 5 MG TABLET PO SCH (20:28)
[2024-02-06 20:32] VITALS: BP 117/78; PULSE 86; RESP 18; TEMP 98
[2024-02-06] MEDS ORDERED: OLANZapine 5 MG RAPDIS TABLET PO SCH (21:00)
[2024-02-07] MEDS: LURASIDONE HCL 40 MG TABLET PO SCH (06:37)
[2024-02-07 08:13] VITALS: BP 110/62; PULSE 94; RESP 19; TEMP 98.2; O2SAT 97
[2024-02-07] MEDS: BuPROPion HCL XL 150 MG ER TABLET PO SCH (08:39)
[2024-02-07 20:11] VITALS: BP 109/67; PULSE 100; RESP 16; TEMP 98.2; O2SAT 97
[2024-02-08 08:58] VITALS: BP 110/69; PULSE 92; RESP 18; TEMP 97.8; O2SAT 97
[2024-02-08 09:10] LABS: ALANINE AMINOTRANSFERASE 28 U/L (12-78); ALBUMIN 3.5 g/dL (3.4-5.0); ALKALINE PHOSPHATASE 70 U/L (46-116); ANION GAP 12 mmol/L (8-16); ASPARTATE AMINOTRANSFERASE 21 U/L (15-37); BILIRUBIN,TOTAL 0.8 mg/dL (0.1-1.0); CALCIUM, TOTAL 8.2 mg/dL (8.8-10.5); CARBON DIOXIDE 23 mmol/L (22-29); CHLORIDE 103 mmol/L (98-107); CREATININE 0.56 mg/dL (0.60-1.30); GLOMERULAR FILTR. RATE CALC > 60 mL/min (>60); GLUCOSE,RANDOM 84 mg/dL (70-110); SODIUM SERUM 138 mmol/L (136-145); TOTAL PROTEIN, SERUM 6.4 g/dL (6.4-8.2); UREA NITROGEN, BLOOD 1 mg/dL (7-18)
[2024-02-08 09:14] LABS: POTASSIUM 2.8 mmol/L (3.5-5.1)
[2024-02-08] MEDS: PROMETHAZINE HCL 25 MG TABLET PO PRN (11:15)
[2024-02-08] MEDS: POTASSIUM CHLORIDE 20 MEQ ER TABLET PO ONE (12:11)
[2024-02-09 05:08] LABS: HEPATITIS A ANTIBODY IGM Negative (Negative); HEPATITIS B CORE IGM Negative (Negative); HEPATITIS C AB (EIA) Non Reactive (Non Reactive)
[2024-02-09 08:22] VITALS: BP 107/59; PULSE 100; RESP 16; TEMP 96.9; O2SAT 99
[2024-02-09] MEDS: POTASSIUM CHLORIDE 20 MEQ ER TABLET PO ONE (09:24)
[2024-02-09] MEDS: MAG HYDROX/ALUMINUM HYD/SIMETH ES 30 ML SUSPENSION UDCUP PO PRN (10:59)
[2024-02-09 21:52] VITALS: BP 109/70; PULSE 93; RESP 18; TEMP 97.3; O2SAT 98
[2024-02-10 08:21] VITALS: BP 107/66; PULSE 90; RESP 19; TEMP 97.5; O2SAT 99
[2024-02-10] MEDS ORDERED: PALIPERIDONE PALMITATE 156 MG/ML SYRINGE IM ONE (09:00)
[2024-02-10] MEDS: POTASSIUM CHLORIDE 20 MEQ ER TABLET PO ONE ×2 (09:53→16:51)
[2024-02-10 22:01] VITALS: BP 108/67; PULSE 72; RESP 17; TEMP 97; O2SAT 98
[2024-02-11] MEDS: LURASIDONE HCL 20 MG TABLET PO PRN (06:24)
[2024-02-11 08:58] VITALS: BP 128/58; PULSE 75; RESP 17; TEMP 98; O2SAT 91
[2024-02-11 20:27] VITALS: BP 90/62; PULSE 78; RESP 17; TEMP 95.6; O2SAT 99
[2024-02-12 08:16] VITALS: BP 92/64; PULSE 72; RESP 16; TEMP 97.2; O2SAT 100
[2024-02-12 09:49] VITALS: BP 106/66; PULSE 98; RESP 17; TEMP 97.1; O2SAT 98
[2024-02-12] MEDS: TRIHEXYPHENIDYL HCL 5 MG TABLET PO SCH (17:14)
[2024-02-12] MEDS: FluPHENAZine DECANOATE 25 MG/ML IM ONE (17:50)
[2024-02-12 20:36] VITALS: BP 104/59; PULSE 82; RESP 16; TEMP 96.1; O2SAT 98
[2024-02-13 00:06] LABS: HEPATITIS A ANTIBODY IGM Negative (Negative); HEPATITIS B CORE IGM Negative (Negative); HEPATITIS C AB (EIA) Non Reactive (Non Reactive)
[2024-02-13 08:13] VITALS: BP 100/60; PULSE 65; RESP 19; TEMP 98; O2SAT 100
[2024-02-13] MEDS: FluPHENAZine HCL 10 MG TABLET PO SCH (20:11)
[2024-02-13 20:18] VITALS: BP 93/62; PULSE 95; RESP 18; TEMP 98.5
[2024-02-14 08:15] VITALS: BP 102/64; PULSE 67; RESP 17; TEMP 97.8; O2SAT 98
[2024-02-14] MEDS: BuPROPion HCL XL 150 MG ER TABLET PO SCH (08:50)
[2024-02-14 20:17] VITALS: BP 93/59; PULSE 82; RESP 18; TEMP 98.6; O2SAT 94
[2024-02-15 09:05] VITALS: BP 100/63; PULSE 74; RESP 16; TEMP 97.3; O2SAT 100
[2024-02-15 20:19] VITALS: BP 101/63; PULSE 81; RESP 17; TEMP 94.5; O2SAT 96
[2024-02-15] MEDS: FluPHENAZine HCL 5 MG TABLET PO PRN (20:36)
[2024-02-16 08:34] VITALS: BP 100/52; PULSE 87; RESP 16; TEMP 96.7; O2SAT 95
[2024-02-16 21:14] VITALS: BP 102/58; PULSE 84; RESP 18; TEMP 97.2; O2SAT 96
[2024-02-17 10:10] VITALS: BP 104/75; PULSE 92; RESP 20; TEMP 96.5; O2SAT 99
[2024-02-17 20:11] VITALS: BP 101/60; PULSE 78; RESP 18; TEMP 97.9; O2SAT 98
[2024-02-18 08:28] VITALS: BP 101/63; PULSE 70; RESP 18; TEMP 97.3; O2SAT 97
[2024-02-18 21:12] VITALS: BP 103/62; PULSE 84; RESP 18; TEMP 97.5; O2SAT 98
[2024-02-19 08:34] VITALS: BP 101/67; PULSE 89; RESP 17; TEMP 97.1; O2SAT 95
[2024-02-19] MEDS ORDERED: BUPR-514 PO (16:32)
[2024-02-19] MEDS ORDERED: FLUP10TA28 PO (16:34)
[2024-02-20] MEDS ORDERED: FluPHENAZine DECANOATE 25 MG/ML IM SCH (09:00)
[2024-02-26] MEDS ORDERED: FluPHENAZine DECANOATE 25 MG/ML IM SCH (09:00)
== END 2024-02-19 18:50 | disposition home or self-care (01) | DRG 750 ==
LOC: EMS 21:58 → B2S 02-06 08:39
PROVIDERS: ADMIT Psychiatry & Neurology Psychiatry; ATTEND Psychiatry & Neurology Psychiatry
PROC: GZHZZZZ Group Psychotherapy (ICD-10-PCS; principal; 2024-02-06)
PROC: GZ56ZZZ Individual Psychotherapy, Supportive (ICD-10-PCS; 2024-02-06)
PROC: GZ58ZZZ Individual Psychotherapy, Cognitive-Behavioral (ICD-10-PCS; 2024-02-06)
DX: F25.0 Schizoaffective disorder, bipolar type (principal); R45.851 Suicidal ideations; E87.1 Hypo-osmolality and hyponatremia; Z20.822 Contact with and (suspected) exposure to COVID-19; F15.90 Other stimulant use, unspecified, uncomplicated; F41.9 Anxiety disorder, unspecified; E87.6 Hypokalemia; Z91.148 Patient's other noncompliance with medication regimen for other reason; Z63.9 Problem related to primary support group, unspecified; Z59.9 Problem related to housing and economic circumstances, unspecified; Z65.3 Problems related to other legal circumstances; Z55.9 Problems related to education and literacy, unspecified; Z88.8 Allergy status to other drugs, medicaments and biological substances; Z91.199 Patient's noncompliance with other medical treatment and regimen due to unspecified reason
CPT/HCPCS: 80048; 80053; 80074; 80307; 84132; 84703; 85025; 86592; 99285; G0480; J2680

== ENCOUNTER 2024-02-08 14:37 | Emergency (ER) | payer MEDICAID, OTHER ==
[~2024-02-08] VITALS: Ht 157.5 cm; Wt 63.6 kg
[2024-02-08 15:19] VITALS: BP 93/62; PULSE 92; RESP 14; TEMP 98.2; O2SAT 98
[2024-02-08 16:34] LABS: ANION GAP 13 mmol/L (8-16); CALCIUM, TOTAL 8.3 mg/dL (8.8-10.5); CARBON DIOXIDE 23 mmol/L (22-29); CHLORIDE 101 mmol/L (98-107); CREATININE 0.61 mg/dL (0.60-1.30); GLOMERULAR FILTR. RATE CALC > 60 mL/min (>60); GLUCOSE,RANDOM 121 mg/dL (70-110); POTASSIUM 3.1 mmol/L (3.5-5.1); SODIUM SERUM 137 mmol/L (136-145); UREA NITROGEN, BLOOD 2 mg/dL (7-18)
[2024-02-08] MEDS: POTASSIUM CHLORIDE 20 MEQ ER TABLET PO ONE ×2 (16:51→17:43)
== END 2024-02-08 19:17 | disposition short-term general hospital (02) ==
LOC: EMS 14:37
DX: E87.6 Hypokalemia (principal); F25.1 Schizoaffective disorder, depressive type
CPT/HCPCS: 80048; 99283; 99285

== ENCOUNTER 2024-04-30 20:54 | Inpatient (IN) | payer MEDICAID ==
[~2024-04-30] VITALS: Ht 154.9 cm; Wt 58.1 kg
[2024-04-30 19:30] VITALS: BP 128/70; PULSE 68; RESP 18; TEMP 97.4; O2SAT 99
[~2024-04-30 20:54] MED LIST changes: -BENZ0.5T49 PO; +BUPR-514 PO; -DIPH25CA85 PO; -ESCI-8 PO; +FLUP10TA28 PO; -FLUP1TAB8 PO; -OLAN2.5T29 PO
[2024-05-01 01:20] VITALS: BP 109/83; PULSE 113; RESP 15; TEMP 98; O2SAT 98
[2024-05-01 01:34] VITALS: BP 109/83; PULSE 113; RESP 15; TEMP 98; O2SAT 98
[2024-05-01] MEDS ORDERED: NICOTINE 14 MG/24 HOUR PATCH TD PRN ×2 (04:15→06:15)
[2024-05-01] MEDS ORDERED: GuaiFENesin/D-METHORPHAN [SUGAR-FREE] 200-20MG/10 ML SYRUP UDCUP PO PRN (06:15)
[2024-05-01] MEDS ORDERED: DOCUSATE SODIUM 100 MG CAPSULE PO PRN (06:15)
[2024-05-01] MEDS ORDERED: CloNIDine HCL 0.1 MG TABLET PO PRN (06:15)
[2024-05-01] MEDS ORDERED: ALBUTEROL SULFATE HFA 90 MCG/PUFF 8 GM INHALER IH PRN (06:15)
[2024-05-01] MEDS ORDERED: LOPERAMIDE HCL 2 MG CAPSULE PO PRN (06:15)
[2024-05-01] MEDS ORDERED: MAGNESIUM HYDROXIDE SUSPENSION 30 ML UDCUP PO PRN (06:15)
[2024-05-01] MEDS ORDERED: ONDANSETRON 4 MG TABLET PO PRN (06:15)
[2024-05-01] MEDS ORDERED: IBUPROFEN 400 MG TABLET PO PRN (06:15)
[2024-05-01] MEDS ORDERED: MAG HYDROX/ALUMINUM HYD/SIMETH ES 30 ML SUSPENSION UDCUP PO PRN (06:15)
[2024-05-01] MEDS ORDERED: PETROLATUM,WHITE 28 GM JELLY TP PRN (06:15)
[2024-05-01 08:12] VITALS: RESP 18
[2024-05-01 08:43] LABS: HEMOGLOBIN A1C 5.1 % (3.8-5.6)
[2024-05-01 08:45] LABS: BASOPHILS % (AUTO) 0.4 % (0.0-2.0); HEMATOCRIT 38.5 % (36-46); HEMOGLOBIN 12.9 g/dL (12.0-16.0); LYMPHOCYTES # (AUTO) 2.2 K/uL (1.0-4.8); LYMPHOCYTES % (AUTO) 45.7 % (22.0-44.0); MEAN CORPUSCULAR HEMOGLOBIN 31.8 pg (26.0-34.0); MEAN CORPUSCULAR HGB CONC 33.5 G/dL (31.0-37.0); MEAN CORPUSCULAR VOLUME 95 fL (80-100); MONOCYTES # (AUTO) 0.3 K/uL (0.1-1.0); MONOCYTES % (AUTO) 7.2 % (2.0-9.0); NEUTROPHILS # (AUTO) 2.1 K/uL (1.8-7.7); NEUTROPHILS % (AUTO) 42.7 % (40.0-70.0); PLATELET COUNT (AUTO) 228 K/uL (150-450); RED BLOOD CELL COUNT(AUTO) 4.05 MIL/uL (4.00-5.20); RED CELL DISTRIBUTION WIDTH 12.8 % (11.5-14.5); WHITE BLOOD COUNT (AUTO) 4.8 K/uL (4.5-11.0)
[2024-05-01 09:08] LABS: ALANINE AMINOTRANSFERASE 39 U/L (12-78); ALBUMIN 3.4 g/dL (3.4-5.0); ALKALINE PHOSPHATASE 58 U/L (46-116); ANION GAP 6 mmol/L (8-16); ASPARTATE AMINOTRANSFERASE 42 U/L (15-37); BILIRUBIN,TOTAL 0.4 mg/dL (0.1-1.0); CALCIUM, TOTAL 8.4 mg/dL (8.8-10.5); CARBON DIOXIDE 28 mmol/L (22-29); CHLORIDE 104 mmol/L (98-107); CHOL/HDL RATIO 2.5 (3.9-5.7); CHOLESTEROL 180 mg/dL (131-200); CREATININE 0.53 mg/dL (0.60-1.30); FREE T4 (FREE THYROXINE) 1.04 ng/dL (0.76-1.46); GLOMERULAR FILTR. RATE CALC > 60 mL/min (>60); GLUCOSE,RANDOM 95 mg/dL (70-110); HCG,QUANTITATIVE < 1 mIU/mL (0-6); HDL CHOLESTEROL 72 mg/dL (40-60); LDL CHOL (CALC.) 97 mg/dL (0-130); POTASSIUM 3.7 mmol/L (3.5-5.1); SODIUM SERUM 138 mmol/L (136-145); THYROID STIMULATING HORMONE 1.88 uIU/mL (0.36-3.74); TOTAL PROTEIN, SERUM 6.5 g/dL (6.4-8.2); TRIGLYCERIDES 53 mg/dL (15-150); UREA NITROGEN, BLOOD 5 mg/dL (7-18)
[2024-05-01] MEDS: FluPHENAZine HCL 10 MG TABLET PO SCH (20:03)
[2024-05-01 21:08] VITALS: BP 122/88; PULSE 100; RESP 17; TEMP 97.2; O2SAT 96
[2024-05-02 08:15] VITALS: BP 98/57; PULSE 94; RESP 17; TEMP 98.7; O2SAT 94
[2024-05-02] MEDS: BuPROPion HCL XL 150 MG ER TABLET PO SCH (08:15)
[2024-05-02 08:33] LABS: HEMOGLOBIN A1C 5.1 % (3.8-5.6)
[2024-05-02 08:52] LABS: CHOL/HDL RATIO 2.8 (3.9-5.7); THYROID STIMULATING HORMONE 1.79 uIU/mL (0.36-3.74)
[2024-05-02 20:17] VITALS: BP 98/63; PULSE 88; RESP 16; TEMP 98.3; O2SAT 96
[2024-05-03 08:36] VITALS: BP 105/67; PULSE 92; RESP 19; TEMP 98.3; O2SAT 96
[2024-05-03 23:25] VITALS: BP 110/74; PULSE 96; RESP 19; TEMP 98.2; O2SAT 97
[2024-05-04 04:00] VITALS: BP 107/75
[2024-05-04] MEDS: LORazepam 2 MG TABLET PO PRN (04:01)
[2024-05-04] MEDS: ACETAMINOPHEN 325 MG TABLET PO PRN (04:01)
[2024-05-04 08:41] VITALS: BP 92/54; PULSE 95; RESP 16; TEMP 98; O2SAT 95
[2024-05-04] MEDS: HALOPERIDOL 5 MG TABLET PO PRN (18:04)
[2024-05-04 20:44] VITALS: BP 111/70; PULSE 100; RESP 18; TEMP 96.3; O2SAT 99
[2024-05-05 08:24] VITALS: BP_SYST 106; BP_SYST 113; BP_DIAS 67; BP_DIAS 98; PULSE 68; PULSE 96; RESP 17; RESP 18; TEMP 97.3; TEMP 98.8; O2SAT 100; O2SAT 96
[2024-05-05 09:41] LABS: APPEARANCE,URINE HAZY (CLEAR); BILIRUBIN,URINE NEGATIVE (NEGATIVE); COLOR,URINE LIGHT YELLOW (YELLOW); GLUCOSE, URINE (UA) NEGATIVE (NEGATIVE); KETONES,URINE NEGATIVE (NEGATIVE); LEUKOCYTE ESTERASE ,URINE NEGATIVE (NEGATIVE); NITRATE,URINE NEGATIVE (NEGATIVE); OCCULT BLOOD,URINE NEGATIVE (NEGATIVE); PH,URINE 7.5 (5.0-8.0); PH,URINE DRUG SCREEN 7.5 (5.0-8.0); PROTEIN,URINE NEGATIVE (NEGATIVE); SPECIFIC GRAVITIY, URINE 1.009 (1.003-1.030); UROBILINOGEN,URINE <=1.0 mg/dL (<=1.0)
[2024-05-05 09:57] LABS: ALCOHOL, URINE DRUG SCREEN NEGATIVE (NEGATIVE); AMPHET/METH SCREEN,URINE NEGATIVE (NEGATIVE); BARBITURATE SCREEN, URINE NEGATIVE (NEGATIVE); BENZODIAZEPINES SCREEN,URINE NEGATIVE (NEGATIVE); CANNABINOID SCREEN,URINE NEGATIVE (NEGATIVE); COCAINE SCREEN,URINE NEGATIVE (NEGATIVE); METHADONE SCREEN, URINE NEGATIVE (NEGATIVE); OPIATE SCREEN,URINE NEGATIVE (NEGATIVE); PHENCYCLIDINE SCREEN,URINE NEGATIVE (NEGATIVE)
[2024-05-05 20:16] VITALS: BP 99/72; PULSE 100; RESP 17; TEMP 97.4; O2SAT 97
[2024-05-06 09:35] VITALS: BP 93/59; PULSE 86; RESP 18; TEMP 97.7; O2SAT 98
[2024-05-06] MEDS: ZOLPIDEM TARTRATE 10 MG TABLET PO PRN (20:06)
[2024-05-06 20:16] VITALS: BP 105/68; PULSE 98; RESP 18; TEMP 97.9; O2SAT 97
[2024-05-06] MEDS ORDERED: CYCLOBENZAPRINE HCL 10 MG TABLET PO PRN (20:30)
[2024-05-07 08:58] VITALS: BP 111/64; PULSE 100; RESP 16; TEMP 97.6; O2SAT 95
== END 2024-05-07 19:02 | disposition home or self-care (01) | DRG 750 ==
LOC: B2S 22:09
PROVIDERS: ADMIT Psychiatry & Neurology Child & Adolescent Psychiatry; ATTEND Psychiatry & Neurology Child & Adolescent Psychiatry
PROC: GZHZZZZ Group Psychotherapy (ICD-10-PCS; principal; 2024-05-01)
PROC: GZ52ZZZ Individual Psychotherapy, Cognitive (ICD-10-PCS; 2024-05-01)
PROC: GZ56ZZZ Individual Psychotherapy, Supportive (ICD-10-PCS; 2024-05-01)
DX: F25.0 Schizoaffective disorder, bipolar type (principal); F22 Delusional disorders; F41.9 Anxiety disorder, unspecified; G47.00 Insomnia, unspecified; R63.0 Anorexia; F99 Mental disorder, not otherwise specified; M62.838 Other muscle spasm; I10 Essential (primary) hypertension; Z91.148 Patient's other noncompliance with medication regimen for other reason; F25.1 Schizoaffective disorder, depressive type
CPT/HCPCS: 80053; 80061; 80307; 81003; 83036; 84439; 84443; 84702; 84703; 85025